=== PATIENT | female | born 1970 | race Caucasian/White ===

== ENCOUNTER 2017-03-30 09:20 | Day surgery (SDC) | payer BC ==
[2017-03-30] MEDS ORDERED: Lactated Ringer's 500 ML IV ONE (09:41)
[2017-03-30] MEDS ORDERED: Propofol 10 mg/ml Inj (20 ML) ONE (10:31)
[2017-03-30 10:54] VITALS: TEMP 96.5
[2017-03-30 11:10] VITALS: BP 115/81; PULSE 82; RESP 16; O2SAT 100
== END 2017-03-30 11:16 | disposition home or self-care (01) ==
LOC: H.ENDO 09:20
PROVIDERS: ATTEND Internal Medicine Gastroenterology
DX: R10.13 Epigastric pain (principal); D64.9 Anemia, unspecified; I10 Essential (primary) hypertension; K44.9 Diaphragmatic hernia without obstruction or gangrene; K31.9 Disease of stomach and duodenum, unspecified; K29.70 Gastritis, unspecified, without bleeding; K31.89 Other diseases of stomach and duodenum
CPT/HCPCS: 43239; 88305; J2001; J2704; J7120